=== PATIENT | female | born 1940 | race Caucasian/White ===

== ENCOUNTER → 2021-04-18 | Outpatient (CLI) | payer MEDICARE, OTHER ==
[~2021-04-18] MED LIST: CLONAZEPAM 0.50.5 M1 PO; DETROL2 M1 PO; FOLIC ACID1 MG PO; HUMIRA40 MG/0.1 SUBQ; HYDRALAZINE 2525 M1 PO; LIPITOR20 MG PO; LOPRESSOR50 MG PO; LOSARTAN PO; LOW DOSE ASPIRI81 M1 PO; MEDROLDOSEPACK PO; METHOTREXATE 22.5 M1 PO; NATURAL LUTEIN20 MG PO; PROAIR HFA8.5 GM INH; PROLIA60 MG/1 ML SUBQ; PROTONIX40 M2 PO; TRAMADOL HCL50 MG PO; VITAMIN D3250 MC1 PO
== END ==
LOC: M.PC 09:07
PROVIDERS: ATTEND Anesthesiology Pain Medicine
DX: I10 Essential (primary) hypertension (principal); R91.8 Other nonspecific abnormal finding of lung field; M54.50 Low back pain, unspecified; J44.9 Chronic obstructive pulmonary disease, unspecified; E78.5 Hyperlipidemia, unspecified; R07.89 Other chest pain; R00.2 Palpitations; R06.00 Dyspnea, unspecified; Z88.8 Allergy status to other drugs, medicaments and biological substances; Z79.82 Long term (current) use of aspirin; Z79.899 Other long term (current) drug therapy